=== PATIENT | male | born 1965 | race Caucasian/White ===

== ENCOUNTER 2017-10-08 07:55 | Emergency (ER) | payer MEDICARE ==
[~2017-10-08] VITALS: Ht 182.9 cm; Wt 100.0 kg
[~2017-10-08 07:55] MED LIST: ASA LOW DOSE81 MG OR; ATIVAN0.5 MG PO; ATIVAN1 MG PO; AVODART0.5 MG OR; BD INSULIN SC; BUSPAR15 MG PO; CIPROFLOXACN500 MG PO; CLARITIN10 M1 PO; CLINDAMYCIN150 MG PO; CLINDAMYCIN300 M1 PO; COMBIVENT IN; COUMADIN5 MG OR; CYMBALTA20 MG PO; DEPO-MEDROL80 MG/ML IM; EC ASPIRIN325 MG OR; EFFEXOR XR150 MG OR; EFFEXOR75 MG OR; ELAVIL25 MG OR; GABAPENTIN300 MG PO; GABAPENTIN600 MG PO; GLIPIZIDE5 M1 PO; GLIPIZIDE5 MG PO; HUMULIN R1 M1 SC; HUMULIN R500 UNIT/M; HYDROCORTISO2.51 EX; INSULIN SC; INSULIN SY SC; INSULIN SYR1 ML/294 SC; JANUVIA100 MG PO; KEFLEX500 MG PO; KETOROLAC60 MG/2 ML IJ; LANTUS; LANTUS SC; LANTUS100 MG/ML; LANTUS100 MG/ML SC; LISINOPRIL5 MG PO; LORTAB 5-325 MG1 TAB PO; LYRICA50 MG PO; LYRICA75 MG OR; MEDDOSEPAK PO; METFORMIN1000 MG PO; METFORMIN500 MG OR; METFORMIN500 MG PO; METHOCARBAM500 MG PO; NAPROSYN500 MG PO; NAPROXEN500 MG PO; NEURONTIN300 MG PO; NITRO PUMP; NO MEDS; NOVOLIN R IJ; NOVOLIN SC; NOVOLO1 SC; NYSTAT/TRIA2 EX; OMEPRAZOLE20 MG PO; PAROXETINE20 MG PO; PAROXETINE30 MG PO; PERCOCET1 TA4 PO; PLAVIX75 MG OR; PRAVASTATIN10 MG PO; PREVACID30 M1 OR; PREVACID30 M2 OR; PRILOSEC40 MG PO; QUINAGLUTE DUR324 MG OR; RELION MICRO XX; RISPERDAL M0.5 MG PO; RISPERDAL2 MG PO; ROCEPHIN 1 GM1 GM IV; TEGRETOL XR200 MG OR; TEGRETOL200 MG OR; TEST STRIPS SC; TRAMADOL HCL50 MG PO; ULTRAM50 MG OR; WALKER; ZANAFLEX4 MG PO; [UNRECOGNIZED DRUG - OTHER] OR; [UNRECOGNIZED DRUG - OTHER] XX
[2017-10-08] MEDS ORDERED: ERYTHROMYCIN O3.5 GM OU (08:44)
[2017-10-08] MEDS ORDERED: ACULAR LS0.4 % OS (08:44)
[2017-10-08 08:55] VITALS: BP 157/90
== END 2017-10-08 08:55 | disposition home or self-care (01) ==
LOC: ED 07:55
DX: S05.02XA Injury of conjunctiva and corneal abrasion without foreign body, left eye, initial encounter (principal); I10 Essential (primary) hypertension; E11.9 Type 2 diabetes mellitus without complications; G89.29 Other chronic pain; M54.9 Dorsalgia, unspecified; F17.210 Nicotine dependence, cigarettes, uncomplicated; X58.XXXA Exposure to other specified factors, initial encounter; Y93.89 Activity, other specified; Z79.4 Long term (current) use of insulin

== ENCOUNTER 2019-02-01 06:24 | Day surgery (SDC) | payer MEDICARE ==
[~2019-02-01] VITALS: Ht 182.9 cm; Wt 108.9 kg
[~2019-02-01 06:24] MED LIST changes: +ACULAR LS0.4 % OS; +CYMBALTA60 MG PO; +ERYTHROMYCIN O3.5 GM OU; +JARDIANCE10 MG PO; +NOVOLOG FL100 UNIT/M SC; +TIZANIDINE4 MG PO; +TRESIBA FL200 UNIT/M SC; +TRULICITY0.75 MG/0.
[2019-02-01 07:04] LABS: BARBITURATES NEGATIVE (NEGATIVE); COCAINE NEGATIVE (NEGATIVE); METHADONE NEGATIVE (NEGATIVE); TETRAHYDROCANNABIONOL POSITIVE (NEGATIVE); TRICYLIC ANTIDEPRESSANTS NEGATIVE (NEGATIVE)
[2019-02-01 07:05] LABS: OXCYCODONE POSITIVE (NEGATIVE)
[2019-02-01 09:38] VITALS: BP 147/83
== END 2019-02-01 09:51 | disposition home or self-care (01) ==
LOC: ORM 06:24
PROVIDERS: ATTEND Surgery
PROC: 0JBF0ZZ Excision of Left Upper Arm Subcutaneous Tissue and Fascia, Open Approach (ICD-10-PCS; principal; 2019-02-01)
DX: L73.2 Hidradenitis suppurativa (principal); I10 Essential (primary) hypertension; E11.9 Type 2 diabetes mellitus without complications; F17.210 Nicotine dependence, cigarettes, uncomplicated; Z79.4 Long term (current) use of insulin

== ENCOUNTER 2019-04-11 15:51 | Inpatient (IN) | payer MEDICARE ==
[~2019-04-11] VITALS: Ht 182.9 cm; Wt 118.0 kg
[~2019-04-11 15:51] MED LIST changes: +BACLOFEN20 MG PO; +HYDROCO/APAP1 T10 PO; +LOPID600 MG PO; -TRULICITY0.75 MG/0.; +TRULICITY0.75 MG/0. SC
[2019-04-11 16:57] LABS: HEMATOCRIT 40.5 % (39.0-50.0); HEMOGLOBIN 13.6 g/dl (14.0-18.0); IMMATURE GRANULOCYTES 0.4 % (0.0-5.0); MEAN CELL VOLUME 87.1 fL CALC (80.0-100.0); MEAN CORPUSCULAR HGB 29.2 pG CALC (26.0-32.0); MEAN CORPUSCULAR HGB CONC 33.6 g/L CALC (32.0-36.0); NEUT# 12.75 thou/uL (1.82-7.42); RED BLOOD COUNT 4.65 mill/uL (4.70-6.10); RED CELL DISTRI WIDTH 13.3 % (11.5-15.5)
[2019-04-11 17:04] LABS: ALBUMIN 4.3 g/dL (3.2-5.0); ALKALINE PHOSPHATASE 99 u/l (38-126); BILIRUBIN, TOTAL 0.5 mg/dL (0.0-1.4); BUN 30 mg/dL (9-20); BUN/CREATININE RATIO 28 (12-20 (CALC)); CHLORIDE 102 mmol/l (95-108); CREATININE 1.1 mg/dL (0.7-1.3); GFR > 60 ML/MIN (>=60 (CALC)); GFR FOR AFR.AMER. > 60 ML/MIN (>=60 (CALC)); POTASSIUM 4.4 mmol/l (3.5-5.1); SGOT/AST 28 u/l (17-59); SODIUM 136 mmol/l (137-146)
[2019-04-11 17:11] LABS: ANION GAP 16 (6-22 (CALC)); CARBON DIOXIDE 22 mmol/l (22-30); TOTAL PROTEIN 8.3 g/dL (6.3-8.2)
[2019-04-11 17:14] LABS: URINE BILIRUBIN - DIPSTICK NEGATIVE (NEGATIVE); URINE BLOOD DIPSTICK NEGATIVE (NEGATIVE); URINE COLOR YELLOW; URINE GLUCOSE - DIPSTICK >=1000 mg/dL (NEGATIVE); URINE KETONE NEGATIVE (NEGATIVE); URINE LEUK ESTERASE NEGATIVE (NEGATIVE); URINE NITRITE - DIPSTICK NEGATIVE (Negative); URINE PH 5.5 (4.5-8.0); URINE PROTEIN - DIPSTICK TRACE mg/dL (NEG-TRACE); URINE UROBILINOGEN - DIPSTICK 0.2 E.U./dL (0.2)
[2019-04-11 19:10] VITALS: BP 175/89
[2019-04-12] VITALS (9 sets, daily range): BP systolic 61–169; BP diastolic 60–90
[2019-04-12 05:31] LABS: HEMATOCRIT 38.4 % (39.0-50.0); HEMOGLOBIN 12.5 g/dl (14.0-18.0); IMMATURE GRANULOCYTES 0.3 % (0.0-5.0); MEAN CELL VOLUME 88.3 fL CALC (80.0-100.0); MEAN CORPUSCULAR HGB 28.7 pG CALC (26.0-32.0); MEAN CORPUSCULAR HGB CONC 32.6 g/L CALC (32.0-36.0); NEUT# 8.92 thou/uL (1.82-7.42); RED BLOOD COUNT 4.35 mill/uL (4.70-6.10); RED CELL DISTRI WIDTH 13.2 % (11.5-15.5)
[2019-04-12 05:45] LABS: ANION GAP 14 (6-22 (CALC)); BUN 23 mg/dL (9-20); BUN/CREATININE RATIO 29 (12-20 (CALC)); CARBON DIOXIDE 24 mmol/l (22-30); CHLORIDE 105 mmol/l (95-108); CREATININE 0.8 mg/dL (0.7-1.3); GFR > 60 ML/MIN (>=60 (CALC)); GFR FOR AFR.AMER. > 60 ML/MIN (>=60 (CALC)); POTASSIUM 4.6 mmol/l (3.5-5.1); SODIUM 139 mmol/l (137-146)
[2019-04-13 05:10] VITALS: BP 117/66
[2019-04-13 07:45] VITALS: BP 159/80
[2019-04-13 10:43] VITALS: BP 128/67
[2019-04-13 13:29] LABS: HEMATOCRIT 34.4 % (39.0-50.0); HEMOGLOBIN 11.3 g/dl (14.0-18.0); IMMATURE GRANULOCYTES 0.5 % (0.0-5.0); MEAN CELL VOLUME 87.8 fL CALC (80.0-100.0); MEAN CORPUSCULAR HGB 28.8 pG CALC (26.0-32.0); MEAN CORPUSCULAR HGB CONC 32.8 g/L CALC (32.0-36.0); NEUT# 8.24 thou/uL (1.82-7.42); RED BLOOD COUNT 3.92 mill/uL (4.70-6.10); RED CELL DISTRI WIDTH 13.1 % (11.5-15.5)
[2019-04-13 15:48] VITALS: BP 140/72
[2019-04-13 19:25] VITALS: BP 151/73
[2019-04-14] VITALS (7 sets, daily range): BP systolic 114–169; BP diastolic 61–89
[2019-04-14 08:02] LABS: HEMATOCRIT 33.9 % (39.0-50.0); HEMOGLOBIN 11.1 g/dl (14.0-18.0); MEAN CELL VOLUME 87.1 fL CALC (80.0-100.0); MEAN CORPUSCULAR HGB 28.5 pG CALC (26.0-32.0); MEAN CORPUSCULAR HGB CONC 32.7 g/L CALC (32.0-36.0); RED BLOOD COUNT 3.89 mill/uL (4.70-6.10); RED CELL DISTRI WIDTH 12.8 % (11.5-15.5)
[2019-04-14 08:18] LABS: ANION GAP 12 (6-22 (CALC)); BUN 14 mg/dL (9-20); BUN/CREATININE RATIO 25 (12-20 (CALC)); CARBON DIOXIDE 22 mmol/l (22-30); CHLORIDE 107 mmol/l (95-108); CREATININE 0.6 mg/dL (0.7-1.3); GFR > 60 ML/MIN (>=60 (CALC)); GFR FOR AFR.AMER. > 60 ML/MIN (>=60 (CALC)); POTASSIUM 4.1 mmol/l (3.5-5.1); SODIUM 137 mmol/l (137-146)
[2019-04-15] VITALS (8 sets, daily range): BP systolic 129–158; BP diastolic 59–77
[2019-04-15 05:33] LABS: HEMATOCRIT 34.2 % (39.0-50.0); HEMOGLOBIN 11.4 g/dl (14.0-18.0); MEAN CELL VOLUME 86.6 fL CALC (80.0-100.0); MEAN CORPUSCULAR HGB 28.9 pG CALC (26.0-32.0); MEAN CORPUSCULAR HGB CONC 33.3 g/L CALC (32.0-36.0); RED BLOOD COUNT 3.95 mill/uL (4.70-6.10); RED CELL DISTRI WIDTH 12.7 % (11.5-15.5)
[2019-04-15 06:03] LABS: ANION GAP 11 (6-22 (CALC)); BUN 14 mg/dL (9-20); BUN/CREATININE RATIO 24 (12-20 (CALC)); CARBON DIOXIDE 25 mmol/l (22-30); CHLORIDE 104 mmol/l (95-108); CREATININE 0.6 mg/dL (0.7-1.3); GFR > 60 ML/MIN (>=60 (CALC)); GFR FOR AFR.AMER. > 60 ML/MIN (>=60 (CALC)); POTASSIUM 4.2 mmol/l (3.5-5.1); SODIUM 137 mmol/l (137-146)
[2019-04-16 04:45] VITALS: BP 165/79
[2019-04-16 05:43] LABS: HEMATOCRIT 34.1 % (39.0-50.0); HEMOGLOBIN 11.4 g/dl (14.0-18.0); IMMATURE GRANULOCYTES 1.1 % (0.0-5.0); MEAN CELL VOLUME 87.7 fL CALC (80.0-100.0); MEAN CORPUSCULAR HGB 29.3 pG CALC (26.0-32.0); MEAN CORPUSCULAR HGB CONC 33.4 g/L CALC (32.0-36.0); NEUT# 5.91 thou/uL (1.82-7.42); RED BLOOD COUNT 3.89 mill/uL (4.70-6.10); RED CELL DISTRI WIDTH 12.9 % (11.5-15.5)
[2019-04-16 06:13] LABS: ANION GAP 11 (6-22 (CALC)); BUN 16 mg/dL (9-20); BUN/CREATININE RATIO 23 (12-20 (CALC)); CARBON DIOXIDE 27 mmol/l (22-30); CHLORIDE 105 mmol/l (95-108); CREATININE 0.7 mg/dL (0.7-1.3); GFR > 60 ML/MIN (>=60 (CALC)); GFR FOR AFR.AMER. > 60 ML/MIN (>=60 (CALC)); MAGNESIUM 1.8 mg/dL (1.6-2.3); SODIUM 138 mmol/l (137-146)
[2019-04-16 08:07] VITALS: BP 191/94
[2019-04-16 11:33] VITALS: BP 189/87
[2019-04-16 15:55] VITALS: BP 172/69
[2019-04-16 19:46] VITALS: BP 153/65
[2019-04-17 00:15] VITALS: BP 153/73
[2019-04-17 05:30] VITALS: BP 142/69
[2019-04-17 15:34] VITALS: BP 195/91
[2019-04-17 19:50] VITALS: BP 188/82
[2019-04-17 21:05] VITALS: BP 180/82
[2019-04-18 04:05] VITALS: BP 130/62; BP 146/100
[2019-04-18 05:31] LABS: HEMATOCRIT 35.1 % (39.0-50.0); HEMOGLOBIN 11.8 g/dl (14.0-18.0); IMMATURE GRANULOCYTES 2.1 % (0.0-5.0); MEAN CORPUSCULAR HGB 28.6 pG CALC (26.0-32.0); MEAN CORPUSCULAR HGB CONC 33.6 g/L CALC (32.0-36.0); NEUT# 6.94 thou/uL (1.82-7.42); RED BLOOD COUNT 4.13 mill/uL (4.70-6.10); RED CELL DISTRI WIDTH 12.7 % (11.5-15.5)
[2019-04-18 05:49] LABS: ALBUMIN 3.1 g/dL (3.2-5.0); ALKALINE PHOSPHATASE 106 u/l (38-126); ANION GAP 12 (6-22 (CALC)); BILIRUBIN, TOTAL 0.2 mg/dL (0.0-1.4); BUN 14 mg/dL (9-20); BUN/CREATININE RATIO 24 (12-20 (CALC)); CARBON DIOXIDE 26 mmol/l (22-30); CHLORIDE 103 mmol/l (95-108); CREATININE 0.6 mg/dL (0.7-1.3); GFR > 60 ML/MIN (>=60 (CALC)); GFR FOR AFR.AMER. > 60 ML/MIN (>=60 (CALC)); POTASSIUM 3.6 mmol/l (3.5-5.1); SGOT/AST 20 u/l (17-59); SODIUM 137 mmol/l (137-146); TOTAL PROTEIN 6.2 g/dL (6.3-8.2)
[2019-04-18 07:27] VITALS: BP 189/96
[2019-04-18 13:50] VITALS: BP 193/91
[2019-04-18 15:00] VITALS: BP 190/80
[2019-04-18 15:12] VITALS: BP 193/89
[2019-04-18 16:45] VITALS: BP 186/73
[2019-04-18] MEDS ORDERED: VANCOMYCIN HYDRO1 GM IV (18:25)
[2019-04-18] MEDS ORDERED: NORVASC10 M1 PO (18:30)
[2019-04-18] MEDS ORDERED: LISINOPRIL40 MG PO (18:30)
[2019-04-19] MEDS ORDERED: GLIPIZIDE10 M2 PO (10:44)
[2019-04-19] MEDS ORDERED: BACLOFEN20 MG PO (11:22)
[2019-04-19] MEDS ORDERED: HYDROCODONE/ACE1 TAB PO (11:25)
[2019-05-10] MEDS ORDERED: HYDROCODONE/ACE1 TAB PO (13:42)
[2019-06-14] MEDS ORDERED: HYDROCODONE/ACE1 TAB PO (12:57)
== END 2019-04-18 19:14 | disposition home health service (06) | DRG 623 ==
LOC: ED 15:51 → ED-I 17:02 → MS2 17:22 → ED 17:22 → MS2 17:22
PROVIDERS: Family Medicine; Internal Medicine; Nurse Practitioner Family; Podiatrist Foot & Ankle Surgery; ADMIT Internal Medicine; ATTEND Internal Medicine
PROC: 0JBR0ZZ Excision of Left Foot Subcutaneous Tissue and Fascia, Open Approach (ICD-10-PCS; principal; 2019-04-12)
PROC: 0JBR0ZZ Excision of Left Foot Subcutaneous Tissue and Fascia, Open Approach (ICD-10-PCS; 2019-04-15)
DX: E11.69 Type 2 diabetes mellitus with other specified complication (principal); L02.612 Cutaneous abscess of left foot; L03.116 Cellulitis of left lower limb; L97.428 Non-pressure chronic ulcer of left heel and midfoot with other specified severity; M86.8X7 Other osteomyelitis, ankle and foot; E11.621 Type 2 diabetes mellitus with foot ulcer; E11.65 Type 2 diabetes mellitus with hyperglycemia; S91.332A Puncture wound without foreign body, left foot, initial encounter; I10 Essential (primary) hypertension; E11.42 Type 2 diabetes mellitus with diabetic polyneuropathy; F17.210 Nicotine dependence, cigarettes, uncomplicated; Z79.4 Long term (current) use of insulin; W45.0XXA Nail entering through skin, initial encounter; Z91.11 Patient's noncompliance with dietary regimen
CPT/HCPCS: G0378; J0692; J3370; Q3014

== ENCOUNTER 2019-10-23 08:39 | Emergency (ER) | payer MEDICARE ==
[~2019-10-23 08:39] MED LIST changes: +GLIPIZIDE10 M2 PO; +HYDROCODONE/ACE1 TAB PO; +LISINOPRIL40 MG PO; +NORVASC10 M1 PO; +VANCOMYCIN HYDRO1 GM IV
[2019-10-23] MEDS ORDERED: CEPHALEXIN500 MG PO (09:25)
[2019-10-23] MEDS ORDERED: PERCOCET 10/31 COMBO PO (09:25)
[2019-10-23 09:52] VITALS: BP 146/74
[2019-11-08] MEDS ORDERED: HYDROCODONE/ACE1 TAB PO (11:13)
[2019-11-09] MEDS ORDERED: LIPITOR10 M1 PO (10:56)
[2019-11-09] MEDS ORDERED: PIOGLITAZONE HC30 MG PO (10:56)
[2019-11-09] MEDS ORDERED: JANUVIA100 MG PO (10:58)
[2019-11-09] MEDS ORDERED: DOXYCYCLINE HY100 MG PO (10:59)
[2019-12-06] MEDS ORDERED: HYDROCODONE/ACE1 TAB PO (10:44)
[2020-01-03] MEDS ORDERED: HYDROCODONE/ACE1 TAB PO (10:12)
[2020-02-14] MEDS ORDERED: HYDROCODONE/ACE1 TAB PO (10:37)
[2020-02-14] MEDS ORDERED: BACLOFEN20 MG PO (10:38)
== END 2019-10-23 09:52 | disposition home or self-care (01) ==
LOC: ED 08:39
PROC: 0X940ZZ Drainage of Right Axilla, Open Approach (ICD-10-PCS; principal; 2019-10-23)
DX: L02.411 Cutaneous abscess of right axilla (principal); E11.9 Type 2 diabetes mellitus without complications; I10 Essential (primary) hypertension; B95.62 Methicillin resistant Staphylococcus aureus infection as the cause of diseases classified elsewhere; F17.210 Nicotine dependence, cigarettes, uncomplicated; Z79.84 Long term (current) use of oral hypoglycemic drugs

== ENCOUNTER 2020-06-24 10:38 | Emergency (ER) | payer MEDICARE ==
[~2020-06-24] VITALS: Ht 177.8 cm; Wt 102.0 kg
[~2020-06-24 10:38] MED LIST changes: +CEPHALEXIN500 MG PO; +DOXYCYCLINE HY100 MG PO; +LIPITOR10 M1 PO; +PERCOCET 10/31 COMBO PO; +PIOGLITAZONE HC30 MG PO
[2020-06-24] MEDS ORDERED: KEFLEX500 MG PO (12:04)
[2020-06-24 12:20] VITALS: BP 143/87
== END 2020-06-24 12:20 | disposition home or self-care (01) ==
LOC: ED 10:38
PROC: 0HQGXZZ Repair Left Hand Skin, External Approach (ICD-10-PCS; principal; 2020-06-24)
DX: S61.012A Laceration without foreign body of left thumb without damage to nail, initial encounter (principal); E11.9 Type 2 diabetes mellitus without complications; I10 Essential (primary) hypertension; F17.210 Nicotine dependence, cigarettes, uncomplicated; W29.8XXA Contact with other powered hand tools and household machinery, initial encounter; Y92.009 Unspecified place in unspecified non-institutional (private) residence as the place of occurrence of the external cause

== ENCOUNTER 2020-08-03 20:01 | Inpatient (IN) | payer MEDICARE ==
[~2020-08-03] VITALS: Ht 182.9 cm; Wt 99.0 kg
[~2020-08-03 20:01] MED LIST changes: +DOXYCYCL HYC100 MG PO; +DULOXETINE HCL60 MG PO; +JARDIANCE25 MG PO; +LYRICA150 M1 PO; +METFORMIN HCL1000 MG PO
--- NOTE | 2020-08-03 20:28 | NUR ---
PT. TO ROOM 9 VIA W/C WITH C/O STEPPING ON A NAIL 2 DAYS AGO ON THE SOLE OF HIS LEFT FOOT. AREA IS REDDENED WARM PAINFUL AND BLANCHED. PT. ALSO C/O," PASSING OUT THIS EVENING 4-5 TIMES." PT. ALSO STATES HE FELL AND HIT THE RIGHT SIDE OF HIS CHEEK, AREA REDDNED WITH EDEMA. PT. ALSO HAS A C/O NOT BEING ABLE TO HAVE A BOWEL MOVEMENT IN APPROX. 4-5 DAYS. ABD. SOFT WITH + BOWEL SOUNDS.
[2020-08-03 20:38] LABS: IMMATURE GRANULOCYTES 1.8 % (0.0-5.0); MEAN CELL VOLUME 85.1 fL CALC (80.0-100.0); MEAN CORPUSCULAR HGB 28.2 pG CALC (26.0-32.0); MEAN CORPUSCULAR HGB CONC 33.1 g/dL CAL (32.0-36.0); NEUT# 25.59 thou/uL (1.82-7.42); RED BLOOD COUNT 5.57 mill/uL (4.70-6.10); RED CELL DISTRI WIDTH 13.9 % (11.5-15.5)
[2020-08-03 20:39] LABS: HEMATOCRIT 47.4 % (39.0-50.0); HEMOGLOBIN 15.7 g/dl (14.0-18.0)
[2020-08-03 20:51] LABS: ALKALINE PHOSPHATASE 132 u/l (38-126); ANION GAP 16 (6-22 (CALC)); BUN 30 mg/dL (9-20); CARBON DIOXIDE 28 mmol/l (22-30); CHLORIDE 94 mmol/l (95-108); POTASSIUM 3.8 mmol/l (3.5-5.1); SGOT/AST 19 u/l (17-59); SODIUM 134 mmol/l (137-146)
[2020-08-03 20:53] LABS: ALBUMIN 4.7 g/dL (3.2-5.0); BILIRUBIN, TOTAL 0.7 mg/dL (0.0-1.4); BUN/CREATININE RATIO 19 (12-20 (CALC)); CREATININE 1.6 mg/dL (0.7-1.3); GFR 45 ML/MIN (>=60 (CALC)); GFR FOR AFR.AMER. 55 ML/MIN (>=60 (CALC))
[2020-08-03 21:02] LABS: MYOGLOBIN 288 ng/mL (0 - 121)
[2020-08-03] MEDS ORDERED: FENOFIBRATE145 MG PO (21:04)
[2020-08-03 21:06] LABS: URINE BILIRUBIN - DIPSTICK NEGATIVE (NEGATIVE); URINE BLOOD DIPSTICK TRACE-LYSED (NEGATIVE); URINE COLOR YELLOW; URINE GLUCOSE - DIPSTICK >=1000 mg/dL (NEGATIVE); URINE KETONE NEGATIVE (NEGATIVE); URINE LEUK ESTERASE NEGATIVE (NEGATIVE); URINE NITRITE - DIPSTICK NEGATIVE (Negative); URINE PH 5.5 (4.5-8.0); URINE PROTEIN - DIPSTICK NEGATIVE (NEG-TRACE); URINE SPECIFIC GRAVITY <=1.005; URINE UROBILINOGEN - DIPSTICK 0.2 E.U./dL (0.2)
[2020-08-03] MEDS ORDERED: TRULICITY1.5 MG/0.5 SC (21:10)
[2020-08-03] MEDS ORDERED: TRESIBA100 UNIT/M SC (21:11)
--- NOTE | 2020-08-03 21:28 | NUR ---
PT. STATES HE HAS NEUROPATHY IN HIS FEET AND HE DOES NOT KNOW HOW LONG THE NAIL WAS IN HIS LEFT FOOT. LEFT FOOT IS REDDENED. TOES TO LEFT FOOT ARE PINK WARM AND MOVEABLE WITH GOOD CAPILLARYB REFILL < 2 SEC. PLUSES +.
--- NOTE | 2020-08-03 22:30 | NUR ---
AWAIT I+D OF LEFT FIIT ABSCESS, IV ABT. INFUSING WELL, NO REDNESS OR EDEMA NOTED.
--- NOTE | 2020-08-03 23:02 | NUR ---
IN ROOM TO PERFORM I+D OF LEFT FOOT.
--- NOTE | 2020-08-03 23:17 | NUR ---
MD MADE PT. AWARE OF ADMISSION, VERBALIZED UNDERSTANDING.
--- NOTE | 2020-08-03 23:23 | NUR ---
DRESSING APPLIED TO LEFT FOOT.
[2020-08-04] VITALS (7 sets, daily range): BP systolic 103–142; BP diastolic 61–79
--- NOTE | 2020-08-04 00:23 | NUR ---
PT. AWAITING ADMISSION, NO C/O IV ABT. INFUSING WELL, NO REDNESS OR EDEMA NOTED.
--- NOTE | 2020-08-04 01:13 | NUR ---
Admission Note Report Given to: ROBERT HERNÁNDEZ Transported by: Wheelchair X Stretcher Transported with: X Nurse Transporter X Patent IV O2 Employee Benefits Coordinator Location: ICU X [facility]
--- NOTE | 2020-08-04 01:27 | NUR ---
TO FLOOR VIA WC.
--- NOTE | 2020-08-04 03:39 | NUR ---
LATE ENTRY 0145 RECEIVED PATIENT IN ROOM 261 @ 0130. PATIENT AWAKE, ALERT AND ORIENTED X3. VSS. RIGHT BLACK EYE NOTED. ORIENTED PATIENT TO ROOM. INSTRUCTED ON USE OF BED CONTROLS AND REMOTE. NO DISTRESS NOTED. VERBALIZES UNDERSTANDING.
--- NOTE | 2020-08-04 07:00 | NUR ---
SHIFT CHANGE REPORT, PT AWAKE ALERT AND ORIENTED, C/O LEFT HEEL PAIN AND TALKS ABOUT HIS INCIDENT WHERE HE FELL FEW TIMES AT HOME, IVF INFUSING, TELE MONITOR IN PLACE, CALL SOTO IN REACH AND BED LOCKED IN LOWEST POSITION.
--- NOTE | 2020-08-04 11:45 | NUR ---
RESTING IN BED, PAIN CONCERN ADDRESSED, MEAL SERVED, WILL CONTINUE TO MONITOR.
--- NOTE | 2020-08-04 13:42 | NUR ---
S: ADRIAN TINAJERO JR is a 55 M who presents with CELLULITIS He has a history of HTN AND DM. All medications in patient's chart were reviewed. O: VS: BP 135/67 MMHG, P 54 BPM, RR 18 BREATHS/MIN, T 96.1 F W 99KG, HT 72 IN, Scr = 1 MG/DL, CRCL = 73 ML/MIN A: Blood culture is pending P: Patient is on ZOSYN 3/375G IV Q6H Vancomycin ordered for pharmacy to dose. Start Vancomycin 1G IV Q8H. Vancomycin trough is drawn before the 4th dose on 08/05 @ 0930. Vancomycin goal trough is between 10-15 mcg/ml. Pharmacy will follow and or advise on antibiotics use as needed.
--- NOTE | 2020-08-04 16:14 | NUR ---
SLEEPING AT THIS TIME, NO SIGN DISCOMFORT, BED LOCKED IN LOWEST POSITION.
--- NOTE | 2020-08-04 16:21 | NUR ---
ADAM FROM TRANSFER [facility] JUST CALLED INFORMING THAT [facility] IS AWAITING A BED ON MED/SURG UNIT WHICE MIGHT BE TODAY OR TOMORROW.
--- NOTE | 2020-08-04 19:30 | NUR ---
PATIENT RESTING IN BED AT THIS TIME WITH HOB ELEVATED AND EYES CLOSED. RESPS ARE EVEN AND UNLABORED. TELE MONITOR IN PLACE. IVF PATENT AND INFUSING VIA RAC SITE AT 125CC/HR. CALL LIGHT IN REACH. WILL CONT TO MONITOR.
--- NOTE | 2020-08-04 21:27 | NUR ---
PATIENT RESTING IN BED AT THIS TIME-AWAKE ALERT AND ORIENTEDX3. PATIENT IS ALSO [place]. PATIENT WITH ECCYMOTIC AREA AROUND HIS RIGHT EYE FROM FALLS AT HOME PRIOR TO ADMISSION. PATIENT IS FOR TRANSFER TO [facility] WHEN [facility] BED BECOMES AVAILABLE. AWAITING CALL BACK FROM TRANSFER CENTER WHEN THE BED DOES COME AVAILABLE. PATIENT WITH DRESSING TO LEFT FOOT INTACT-NO DRAINAGE NOTED BUT FOUL ODOR IS PRESENT. FOOT ELEVATED ON PILLOWS. TELE MONITOR IN PLACE. IVF NS PATENT AND INFUSING VIA RAC SITE AT 1`25CC/HR. SITE IS HEALTHY. ACCU-CHECK 216-COVERED WITH HUMALOG 2UNITS PER SLIDING SCALE COVERAGE PROTOCOL. HS SNACK PROVIDED. SAFETY PRECAUTIONS REINFORCED. CALL LIGHT IN REACH. WILL CONT TO MONITOR.
--- NOTE | 2020-08-04 23:49 | NUR ---
PATIENT RESTING IN BED WATCHING THE TV AT THIS TIME. MEDICATED FOR PAIN 6/1O ON PAIN SCALE TO BACK AND BUTTOCKS. ZOSYN HUNG ORDERED AND INFUSING VIA RIGHT AC SITE. CALL LIGHT IN REACH. WILL CONT TO MONITOR.
[2020-08-05 03:51] VITALS: BP 137/79
[2020-08-05 06:10] LABS: IMMATURE GRANULOCYTES 0.5 % (0.0-5.0); MEAN CELL VOLUME 87.1 fL CALC (80.0-100.0); MEAN CORPUSCULAR HGB 28.4 pG CALC (26.0-32.0); MEAN CORPUSCULAR HGB CONC 32.5 g/dL CAL (32.0-36.0); NEUT# 10.54 thou/uL (1.82-7.42); RED BLOOD COUNT 3.88 mill/uL (4.70-6.10); RED CELL DISTRI WIDTH 14.2 % (11.5-15.5)
[2020-08-05 06:15] LABS: HEMATOCRIT 33.8 % (39.0-50.0)
[2020-08-05 06:24] LABS: ALBUMIN 2.8 g/dL (3.2-5.0); ALKALINE PHOSPHATASE 85 u/l (38-126); ANION GAP 11 (6-22 (CALC)); BILIRUBIN, TOTAL 0.5 mg/dL (0.0-1.4); BUN 23 mg/dL (9-20); BUN/CREATININE RATIO 25 (12-20 (CALC)); CARBON DIOXIDE 25 mmol/l (22-30); CHLORIDE 105 mmol/l (95-108); CREATININE 0.9 mg/dL (0.7-1.3); GFR > 60 ML/MIN (>=60 (CALC)); GFR FOR AFR.AMER. > 60 ML/MIN (>=60 (CALC)); POTASSIUM 3.8 mmol/l (3.5-5.1); SGOT/AST 20 u/l (17-59); SODIUM 137 mmol/l (137-146); TOTAL PROTEIN 5.3 g/dL (6.3-8.2)
[2020-08-05 07:24] VITALS: BP 146/74
--- NOTE | 2020-08-05 07:44 | NUR ---
SHIFT CHANGE REPORT, PT AWAKE ALERT AND ORIENTED, NO NEW COMPLAINS, IVF INFUSING, TELE MONITOR IN PLACE, CALL SOTO IN REACH
[2020-08-05 10:27] VITALS: BP 156/84
--- NOTE | 2020-08-05 13:23 | NUR ---
PT IS A 55 YOM WHO PRESENTS WITH CELLULITIS. ALL MEDS IN PTS CHARTS HAVE BEEN REVIEWED. PT IS TAKING ZOSYN 3.375G IV Q6H, VANCOMCYIN ORDERED FOR PHARMACY TO DOSE. VANCOMYCIN TROUGH THIS AM @ 0930 = 13 MCG/ML. GOAL VANCOMYCIN TROUGH 10-15 MCG/ML. CONTINUE VANCOMYCIN 1G IV Q8H @ 0200, 1000, AND 1830. WILL RE-CHECK TROUGH 3/15 AM @ 0930. PT KIDNEY FUNCTION HAS IMPROVED SINCE BASELINE; SCR IS DOWN TO 1 MG/DL FROM 1.6. CRCL IS UP TO 116.9 ML/MIN. PHARMACY WILL CONTINUE TO FOLLOW AND ADVISE NEEDED.
--- NOTE | 2020-08-05 14:49 | NUR ---
REPORT GIVEN TO ZANE AT [facility], TRANSPORTERS HERE AT THIS TIME RECEIVING PT.
--- NOTE | 2020-08-05 14:53 | NUR ---
Discharge instructions given. Patient verbalizes understanding of same. Discharged in stable condition via [facility] with *Other. All belongings sent with pt. TRANSFERRED TO [facility]
== END 2020-08-05 14:45 | DRG 603 ==
LOC: ED 20:01 → ED-I 23:29 → ED 23:41 → MS2 23:42
PROVIDERS: Emergency Medicine; Physician Assistant; ADMIT Internal Medicine; ATTEND Internal Medicine
DX: L03.116 Cellulitis of left lower limb (principal); S02.40CA Maxillary fracture, right side, initial encounter for closed fracture; N17.9 Acute kidney failure, unspecified; L02.612 Cutaneous abscess of left foot; E86.0 Dehydration; I10 Essential (primary) hypertension; E11.40 Type 2 diabetes mellitus with diabetic neuropathy, unspecified; F17.210 Nicotine dependence, cigarettes, uncomplicated; T38.3X6A Underdosing of insulin and oral hypoglycemic [antidiabetic] drugs, initial encounter; W19.XXXA Unspecified fall, initial encounter; Z91.128 Patient's intentional underdosing of medication regimen for other reason; Z79.84 Long term (current) use of oral hypoglycemic drugs; Z20.822 Contact with and (suspected) exposure to COVID-19

== ENCOUNTER 2022-09-26 06:59 | Day surgery (SDC) | payer MEDICARE ==
[~2022-09-26] VITALS: Ht 182.9 cm; Wt 99.8 kg
[~2022-09-26 06:59] MED LIST changes: +ACTOS15 MG PO; +FENOFIBRATE145 MG PO; +LORTAB 1010 MG PO; +PROTONIX40 M2 PO; +TRESIBA100 UNIT/M SC; +TRULICITY1.5 MG/0.5 SC
[2022-09-26 09:47] VITALS: BP 130/74
== END 2022-09-26 09:36 | disposition home or self-care (01) ==
LOC: ENDO 06:59
PROVIDERS: ATTEND Surgery
PROC: 0DBM8ZX Excision of Descending Colon, Via Natural or Artificial Opening Endoscopic, Diagnostic (ICD-10-PCS; principal; 2022-09-26)
PROC: 0DBL8ZX Excision of Transverse Colon, Via Natural or Artificial Opening Endoscopic, Diagnostic (ICD-10-PCS; 2022-09-26)
PROC: 0DBN8ZX Excision of Sigmoid Colon, Via Natural or Artificial Opening Endoscopic, Diagnostic (ICD-10-PCS; 2022-09-26)
PROC: 0DJ08ZZ Inspection of Upper Intestinal Tract, Via Natural or Artificial Opening Endoscopic (ICD-10-PCS; 2022-09-26)
DX: Z12.11 Encounter for screening for malignant neoplasm of colon (principal); D12.4 Benign neoplasm of descending colon; D12.5 Benign neoplasm of sigmoid colon; D12.3 Benign neoplasm of transverse colon; K57.30 Diverticulosis of large intestine without perforation or abscess without bleeding; K64.8 Other hemorrhoids; K21.9 Gastro-esophageal reflux disease without esophagitis; E11.9 Type 2 diabetes mellitus without complications; F17.200 Nicotine dependence, unspecified, uncomplicated; Z79.84 Long term (current) use of oral hypoglycemic drugs; Z79.4 Long term (current) use of insulin; Z79.899 Other long term (current) drug therapy